=== PATIENT | female | born 1975 | race African-American/Black ===

== ENCOUNTER 2021-06-07 10:21 | Emergency (ER) | payer OTHER ==
[2021-06-07 10:33] VITALS: TEMP 98.1; BMI 28.1
[2021-06-07 11:48] LABS: BASO % 1.1 % (0-2.0); EOS % 2.2 % (0-4.5); HEMATOCRIT 34.8 % (32.4-45.2); HEMOGLOBIN 12.2 GM/dL (10.7-15.3); LYMPH % 38.9 % (8-40); MCH 32.4 pg (25.7-33.7); MCHC 34.9 g/dl (32.0-36.0); MEAN CELL VOLUME 92.8 fl (80-96); MEAN PLT VOLUME 8.6 fl (7.5-11.1); MONO % 8.7 % (3.8-10.2); NEUT % 49.1 % (42.8-82.8); PLATELET COUNT 213 10^3/uL (134-434); RBC 3.75 M/mm3 (3.60-5.2); RDW 13.4 % (11.6-15.6); WHITE BLOOD COUNT 5.6 K/mm3 (4.0-10.0)
[2021-06-07 11:56] LABS: INR 1.33 (0.83-1.09); PROTHROMBIN TIME (PATIENT) 14.9 SEC (9.7-13.0)
[2021-06-07 11:59] LABS: ACTIVATED PTT 39.8 SECONDS (25.2-36.5)
[2021-06-07 13:04] LABS: ALBUMIN 3.1 g/dl (3.4-5.0); ALK PHOS 166 U/L (45-117); ANION GAP 4 MMOL/L (8-16); BILIRUBIN,TOTAL 0.5 mg/dL (0.2-1); BLOOD UREA NITROGEN 5.7 mg/dL (7-18); CALCIUM 8.7 mg/dL (8.5-10.1); CHLORIDE 108 mmol/L (98-107); CO2 27 mmol/L (21-32); CREATININE 0.5 mg/dL (0.55-1.3); GLUCOSE,RANDOM 83 mg/dL (74-106); SGOT/AST 32 U/L (15-37); SGPT/ALT 63 U/L (13-61); SODIUM 140 mmol/L (136-145); TOT PROT 7.2 g/dl (6.4-8.2)
[2021-06-07 15:29] VITALS: BP 140/87; PULSE 59
== END 2021-06-07 15:40 | disposition left against medical advice (07) ==
LOC: JER 10:21
DX: R00.2 Palpitations (principal)
CPT/HCPCS: 36415; 71275-TC; 80053; 84443; 84484; 85025; 85610; 85730; 93005; 93010; 93970-TC; 99285-25; Q9967

== ENCOUNTER 2021-09-12 12:32 | Emergency (ER) | payer OTHER ==
[2021-09-12 12:40] VITALS: BP 131/89; PULSE 75; TEMP 97.8; BMI 29.0
== END 2021-09-12 13:55 | disposition home or self-care (01) ==
LOC: JERFT 12:32
DX: M54.6 Pain in thoracic spine (principal); V89.2XXA Person injured in unspecified motor-vehicle accident, traffic, initial encounter
CPT/HCPCS: 72070-TC-FY; 72100-TC-FY; 99284-25

== ENCOUNTER 2021-09-28 10:29 | Emergency (ER) | payer OTHER ==
[2021-09-28 10:37] VITALS: BP 128/92; PULSE 76; TEMP 98; BMI 28.1
== END 2021-09-28 13:10 | disposition home or self-care (01) ==
LOC: JERFT 10:29
DX: M71.22 Synovial cyst of popliteal space [Baker], left knee (principal)
CPT/HCPCS: 73562-TC-LT-FY; 93971-TC; 99284-25

== ENCOUNTER 2022-02-08 12:48 | Emergency (ER) | payer OTHER ==
[2022-02-08 13:07] VITALS: TEMP 97.7; BMI 28.2
[2022-02-08] MEDS ORDERED: MECLIZINE HCL 25 MG TABLET (FP) PO ONE (14:10)
[2022-02-08] MEDS ORDERED: LACTATED RINGERS SOLUTION 1000 ML INFUS.BAG IV ONE (14:10)
[2022-02-08] MEDS ORDERED: MECLIZINE HCL 25 MG TABLET (FP) ONE (14:29)
[2022-02-08 14:36] LABS: EOS % 0.8 % (0-4.5); HEMATOCRIT 38.2 % (32.4-45.2); HEMOGLOBIN 13.2 GM/dL (10.7-15.3); LYMPH % 35.9 % (8-40); MCHC 34.4 g/dl (32.0-36.0); MEAN CELL VOLUME 92.8 fl (80-96); MEAN PLT VOLUME 9.1 fl (7.5-11.1); MONO % 4.7 % (3.8-10.2); NEUT % 57.6 % (42.8-82.8); PLATELET COUNT 216 10^3/uL (134-434); RBC 4.12 M/mm3 (3.60-5.2); RDW 13.4 % (11.6-15.6)
[2022-02-08 14:55] LABS: CHLORIDE 108 mmol/L (98-107); SODIUM 143 mmol/L (136-145)
[2022-02-08 15:00] LABS: ALBUMIN 3.6 g/dl (3.4-5.0); ANION GAP 3 MMOL/L (8-16); BLOOD UREA NITROGEN 5.5 mg/dL (7-18); CO2 32 mmol/L (21-32); GLUCOSE,RANDOM 86 mg/dL (74-106)
[2022-02-08 15:02] LABS: CREATININE 0.6 mg/dL (0.55-1.3)
[2022-02-08 15:03] LABS: SGOT/AST 18 U/L (15-37); SGPT/ALT 24 U/L (13-61)
[2022-02-08 15:04] LABS: BILIRUBIN,TOTAL 0.7 mg/dL (0.2-1); TOT PROT 7.3 g/dl (6.4-8.2)
[2022-02-08 15:05] LABS: ALK PHOS 51 U/L (45-117)
[2022-02-08 15:44] VITALS: BP 143/92; PULSE 56; RESP 16
[2022-02-08 16:43] LABS: PH,URINE 7.5 (5.0-8.0); URINE APPEARANCE CLEAR; URINE BILIRUBIN NEGATIVE (NEGATIVE); URINE COLOR YELLOW; URINE GLUCOSE (UA) NEGATIVE (NEGATIVE); URINE KETONE NEGATIVE (NEGATIVE); URINE LEUK ESTERASE NEGATIVE (NEGATIVE); URINE NITRITE NEGATIVE (NEGATIVE); URINE PROTEIN NEGATIVE (NEGATIVE); URINE UROBILINOGEN 0.2 mg/dL (0.2-1.0)
== END 2022-02-08 18:48 | disposition home or self-care (01) ==
LOC: JER 12:48
DX: R42 Dizziness and giddiness (principal)
CPT/HCPCS: 36415; 80053; 81003; 84484; 84702; 85025; 87086; 93005; 93010; 99284-25; C9803-CS; U0003; U0005

== ENCOUNTER 2022-04-30 11:41 | Emergency (ER) | payer OTHER ==
[2022-04-30 11:59] VITALS: BP 145/89; PULSE 69; RESP 18; TEMP 98.2; BMI 28.2
[2022-04-30] MEDS ORDERED: KETOROLAC TROMETHAMINE 30 MG/1 ML VIAL IM ONE (13:08)
[2022-04-30] MEDS ORDERED: METHOCARBAMOL 500 MG TABLET PO ONE (13:08)
[2022-04-30] MEDS ORDERED: LIDOCAINE 5% TOPICAL PATCH TP ONE (13:08)
[2022-04-30] MEDS ORDERED: KETOROLAC TROMETHAMINE 30 MG/1 ML VIAL ONE (13:13)
[2022-04-30] MEDS ORDERED: LIDOCAINE 5% TOPICAL PATCH ONE (13:13)
[2022-04-30] MEDS ORDERED: METHOCARBAMOL 500 MG TABLET ONE (13:13)
[2022-04-30] MEDS ORDERED: LIDOCAINE PATCH REMOVAL MC ONE (22:00)
== END 2022-04-30 13:21 | disposition home or self-care (01) ==
LOC: JERFT 11:41
PROC: 3E023GC Introduction of Other Therapeutic Substance into Muscle, Percutaneous Approach (ICD-10-PCS; principal; 2022-04-30)
DX: M43.6 Torticollis (principal)
CPT/HCPCS: 99284-25

== ENCOUNTER 2022-11-01 19:13 | Emergency (ER) | payer OTHER ==
[2022-11-01 19:26] VITALS: BP 139/86; PULSE 49; RESP 20; TEMP 99.1; BMI 28.2
== END 2022-11-01 21:27 | disposition home or self-care (01) ==
LOC: JER 19:13 → JERFT 19:13
DX: M71.22 Synovial cyst of popliteal space [Baker], left knee (principal)
CPT/HCPCS: 73562-TC-LT-FY; 93971-TC; 99284-25

== ENCOUNTER 2023-11-27 09:03 | Emergency (ER) | payer OTHER ==
[2023-11-27 09:07] VITALS: BP 131/83; PULSE 68; RESP 20; TEMP 98; BMI 27.3
[2023-11-27] MEDS ORDERED: IBUPROFEN 600 MG TABLET (FP) PO ONE (09:35)
[2023-11-27] MEDS: IBUPROFEN 600 MG TABLET (FP) PO ONE (09:37)
== END 2023-11-27 10:18 | disposition home or self-care (01) ==
LOC: JERFT 09:03
DX: M17.12 Unilateral primary osteoarthritis, left knee (principal); M25.562 Pain in left knee; G89.29 Other chronic pain
CPT/HCPCS: 99283-25

== ENCOUNTER 2024-06-18 13:44 | Emergency (ER) | payer OTHER ==
[2024-06-18 14:10] VITALS: BP 151/98; PULSE 73; RESP 16; TEMP 98.1; BMI 28.2
[2024-06-18] MEDS ORDERED: IBUPROFEN 600 MG TABLET (FP) PO ONE (15:13)
[2024-06-18] MEDS: IBUPROFEN 600 MG TABLET (FP) PO ONE (15:20)
== END 2024-06-18 15:42 | disposition home or self-care (01) ==
LOC: JERFT 13:44
DX: S80.01XA Contusion of right knee, initial encounter (principal); W01.0XXA Fall on same level from slipping, tripping and stumbling without subsequent striking against object, initial encounter
CPT/HCPCS: 73560-TC-RT-FY; 99283-25